=== PATIENT | male | born 1990 | race Caucasian/White ===

== ENCOUNTER 2019-04-21 06:50 | Emergency (ER) | payer OTHER ==
[~2019-04-21] VITALS: Ht 185.4 cm; Wt 70.8 kg
[2019-04-21 06:56] VITALS: Ht 185.4 cm; Wt 70.8 kg
[2019-04-21 07:47] LABS: CALCIUM 8.7 mg/dL (8.5-10.1); CARBON DIOXIDE 29.8 mmol/L (21-32); CHLORIDE SERUM 103 mmol/L (98-107); CREATININE SERUM 0.8 mg/dL (0.7-1.3); GFR1 > 60 mL/min; GLUCOSE SERUM 141 mg/dL (74-106); PLATELET COUNT 237 x10^3mcL (130-400); POTASSIUM SERUM 4.3 mmol/L (3.5-5.1); RED CELL DISTRIBUTION WIDTH 14.7 % (11.5-14.5); SODIUM SERUM 139 mmol/L (136-145)
[2019-04-21 07:48] LABS: BASOPHIL % 0.3 % (0-2)
[2019-04-21 07:51] LABS: ALBUMIN 3.5 g/dL (3.4-5.0); ALKALINE PHOSPHATASE 126 U/L (46-116); ALT/SGPT 37 U/L (16-63); AST/SGOT 14 U/L (15-37); BILIRUBIN TOTAL 0.5 mg/dL (0.20-1.00); LIPASE 93 IU/L (73-393)
[2019-04-21 08:16] LABS: UA SPECIFIC GRAVITY >=1.030 (1.005-1.035); microscopic required? YES; urine erythrocyte NEGATIVE (NEGATIVE)
[2019-04-21 10:40] VITALS: BP 138/74
== END 2019-04-21 10:40 | disposition home or self-care (01) ==
LOC: ED 06:50
PROVIDERS: Specialist
DX: M54.5 Low back pain (principal)
CPT/HCPCS: 36415; J1885; J3010